=== PATIENT | female | born 1955 | race Hispanic/Latino ===

== ENCOUNTER → 2019-08-23 | Outpatient (CLI) | payer MEDICARE ==
--- NOTE | 2019-08-23 14:53 | Diagnostic Imaging Report ---
EXAMINATION: KNEE 4 + VIEWS LT INDICATION: Osteoarthritis COMPARISON: None FINDINGS: No acute fracture or dislocation. Alignment is anatomic. Moderate suprapatellar joint effusion. Minimal tricompartmental degenerative changes. IMPRESSION: No acute osseous injury. Moderate suprapatellar joint effusion. Minimal degenerative changes. Signed by: Renetta Tidwell MD on 08/23/2019 2:49 PM
== END ==
LOC: RAD 11:09
PROVIDERS: ATTEND Family Medicine
DX: M17.12 Unilateral primary osteoarthritis, left knee (principal)